=== PATIENT | male | born 2000 | race Caucasian/White ===

== ENCOUNTER 2024-10-09 21:22 | Emergency (ER) | payer OTHER | END 2024-10-09 22:42 | disposition home or self-care (01) | LOC: ERS 21:22 | DX: S92.332A Displaced fracture of third metatarsal bone, left foot, initial encounter for closed fracture (principal); S92.342A Displaced fracture of fourth metatarsal bone, left foot, initial encounter for closed fracture; V89.2XXA Person injured in unspecified motor-vehicle accident, traffic, initial encounter | CPT/HCPCS: 99284; G0390 ==

== ENCOUNTER 2024-12-09 21:51 | Inpatient (IN) | payer OTHER ==
[2024-12-09] MEDS ORDERED: Ondansetron PF 4 MG/2 ML Vial ONE (22:37)
[2024-12-09 23:07] LABS: ALT (SGPT) 21 U/L (Less than 45); AST (SGOT) 27 U/L (11-34); Acetaminophen Less than 10 mcg/mL (Less than 10); Albumin 4.4 g/dL (3.1-4.5); Alkaline Phosphatase 98 U/L (40-110); Anion Gap 15 mmol/L (10-20); BUN (Urea Nitrogen) 9 mg/dL (8.9-20.6); Bilirubin, Total 0.6 mg/dL (0.3-1.2); Calc. Creatinine Clearance 0 mL/min (70-130); Calcium 9.1 mg/dL (7.8-10.44); Carbon Dioxide 20 mmol/L (22-29); Chloride 108 mmol/L (98-107); Globulin 2.6 g/dL (2.4-3.5); Glucose 82 mg/dL (70-105); Lipase 19 U/L (8-78); Magnesium 2.1 mg/dL (1.6-2.6); Potassium 3.9 mmol/L (3.5-5.1); Salicylate Less than 8.0 mg/dL (Less than 8.0); Sodium 139 mmol/L (136-145)
[2024-12-09 23:22] LABS: #Basophils 0.06 10x3/uL (0.0-0.2); #Eosinophils 0.86 10x3/uL (0.0-0.7); #Monocytes 0.54 10x3/uL (0.11-0.59); #Neutrophils 3.56 10x3/uL (1.40-6.50); %Basophils 0.8 % (0.0-1.0); %Eosinophils 11.7 % (0.0-10.0); %Lymphocytes 31.4 % (21.0-51.0); %Monocytes 7.3 % (0.0-10.0); %Neutrophils 48.5 % (42.0-75.0); Hematocrit 42.4 % (42.0-52.0); Hemoglobin 15.1 g/dL (14.0-18.0); Mean Corpuscular Hemoglobin 32.8 pg (27.0-31.0); Mean Corpuscular Volume 92.2 fL (78.0-98.0); Platelet Count 223 10x3/uL (130-400); Red Blood Cell (RBC) Count 4.60 mill/uL (4.70-6.10); White Blood Cell (WBC) Count 7.35 10x3/uL (4.8-10.8)
[2024-12-10 01:42] LABS: Bacteria/HPF None Seen HPF (None Seen); CAUTI Indications for Culture Alt mental st,lethar; Glucose, Urine (Dipstick) Normal (Negative); Leukocyte Negative Leu/uL (Negative); Protein, Urine (Dipstick) Negative (Neg-Trace); RBC/HPF 0-3 HPF (0-3); Specific Gravity, Urine 1.015 (1.002-1.036); WBC/HPF 0-3 HPF (0-3)
[2024-12-10 01:53] LABS: Cocaine Metabolite Screen Negative (Negative); THC/Cannabinoid Screen PRELIM POSITIVE (Negative); Tricyclic Screen Negative (Negative)
[2024-12-10 01:56] LABS: Urine Culture Reflex No No
[2024-12-10] MEDS ORDERED: Electrolyte Replacement Protocol 1 EACH FS SCH (04:15)
[2024-12-10] MEDS ORDERED: PHOS-NAK 1 PKT PACK PO PRN (04:15)
[2024-12-10] MEDS ORDERED: Potassium Chloride 20 MEQ in Premix 1 BAG IVPB PRN (04:15)
[2024-12-10] MEDS: Albuterol 200 PUFF (6.7GM INHALER) INH PRN (06:03)
[2024-12-10 06:24] LABS: Magnesium 1.9 mg/dL (1.6-2.6)
[2024-12-10] MEDS: Acetaminophen 325 MG TAB PO PRN (06:30)
[2024-12-10] MEDS: Multivitamins, Adult 10 ML, Thiamine HCl 100 MG, Folic Acid 1 MG in Dextrose 5 %-0.45 %... IV SCH (06:32)
[2024-12-10] MEDS: Multivit, Therapeutic 1 TAB PO SCH (09:14)
[2024-12-10] MEDS: Pantoprazole 40 MG VIAL IVP SCH (09:14)
[2024-12-10] MEDS: Folic Acid 1 MG TAB PO SCH (09:14)
[2024-12-10] MEDS: FLU (Fluarix Triv) 25-26 (6MOS UP)/PF 45 MCG/0.5 ML Syringe IM ONE (09:15)
[2024-12-10] MEDS: PNEUMOC 20-VAL CONJ-DIP CRM/PF 0.5 ML SYRINGE IM ONE (09:15)
[2024-12-10] MEDS: Magnesium 2 GM/50 ML(in water) 2 GM in Premix 1 BAG IVPB PRN (09:30)
[2024-12-10] MEDS: diphenhydrAMINE 50 MG/ML VIAL IVP SCH (18:00)
[2024-12-10] MEDS: Famotidine/PF 20 mg/2ml Vial SLOW IVP SCH (20:21)
[2024-12-11] MEDS: diphenhydrAMINE 25 MG CAP PO SCH ×2 (00:38→08:14)
[2024-12-11 04:26] LABS: #Basophils 0.04 10x3/uL (0.0-0.2); #Eosinophils 0.76 10x3/uL (0.0-0.7); #Monocytes 0.51 10x3/uL (0.11-0.59); #Neutrophils 3.50 10x3/uL (1.40-6.50); %Basophils 0.6 % (0.0-1.0); %Eosinophils 11.3 % (0.0-10.0); %Lymphocytes 28.6 % (21.0-51.0); %Monocytes 7.6 % (0.0-10.0); %Neutrophils 51.8 % (42.0-75.0); Hematocrit 40.5 % (42.0-52.0); Hemoglobin 13.9 g/dL (14.0-18.0); Mean Corpuscular Hemoglobin 32.3 pg (27.0-31.0); Mean Corpuscular Volume 94.2 fL (78.0-98.0); Platelet Count 241 10x3/uL (130-400); Red Blood Cell (RBC) Count 4.30 mill/uL (4.70-6.10); White Blood Cell (WBC) Count 6.75 10x3/uL (4.8-10.8)
[2024-12-11 04:44] VITALS: BMI 25.9
[2024-12-11 04:48] LABS: ALT (SGPT) 15 U/L (Less than 45); AST (SGOT) 18 U/L (11-34); Albumin 3.9 g/dL (3.1-4.5); Alkaline Phosphatase 89 U/L (40-110); Anion Gap 11 mmol/L (10-20); BUN (Urea Nitrogen) 10 mg/dL (8.9-20.6); Bilirubin, Total 0.8 mg/dL (0.3-1.2); Calc. Creatinine Clearance 152 mL/min (70-130); Calcium 9.1 mg/dL (7.8-10.44); Carbon Dioxide 24 mmol/L (22-29); Chloride 107 mmol/L (98-107); Globulin 2.1 g/dL (2.4-3.5); Glucose 109 mg/dL (70-105); Magnesium 2.1 mg/dL (1.6-2.6); Potassium 3.3 mmol/L (3.5-5.1); Sodium 139 mmol/L (136-145)
[2024-12-11] MEDS: Famotidine 20 MG TAB PO SCH (09:49)
[2024-12-11 12:20] VITALS: TEMP 97.9
[2024-12-11 16:47] VITALS: BP 128/87
[2024-12-13] MEDS ORDERED: Thiamine 100 MG TAB PO SCH (04:15)
== END 2024-12-11 17:20 | disposition home or self-care (01) | DRG 897 ==
LOC: ERS 21:51 → CCU 12-10 03:53 → T4-A 12-11 08:53
PROVIDERS: ADMIT Family Medicine; ATTEND Family Medicine
DX: F10.239 Alcohol dependence with withdrawal, unspecified (principal); Z79.899 Other long term (current) drug therapy; Z98.890 Other specified postprocedural states; J45.20 Mild intermittent asthma, uncomplicated; Z72.0 Tobacco use; Z91.018 Allergy to other foods
CPT/HCPCS: 36415; 70450; 80053; 80306; 80307; 81001; 83605; 83690; 83735; 84100; 85025; 93005; 96365; 96366; 96375; 96376; J1200; J1308; J2060; J2405; J2470; J3411; J3475; J7042; J7120; Q0162